=== PATIENT | female | born 1990 | race Two or more races ===

== ENCOUNTER 2018-06-17 19:18 | Emergency (ER) | payer MEDICARE, MEDICAID ==
[2018-06-17 19:22] VITALS: BP 125/82
--- NOTE | 2018-06-17 19:40 | ED ---
Throat Pain/Nasal Congestion - HPI Summary HPI Summary: Pt presents with complaint of foreign body in the R ear. She states that she accidentally broke off a piece of Q-tip while cleaning her ear approximately 10- 15 minutes ago. She is unable to remove it herself. There is no significant pain and no bleeding or discharge. She has no other complaints. - History of Current Complaint Chief Complaint: EDEarPain Time Seen by Provider: 06/17/18 19:30 Hx Obtained From: Patient - Allergies/Home Medications Allergies/Adverse Reactions: Allergies Allergy/AdvReac Type Severity Reaction Status Date / Time No Known Allergies Allergy Verified 06/17/18 19:20 PMH/Surg Hx/FS Hx/Imm Hx Previously Healthy: Yes Respiratory History: Reports: Hx Asthma Infectious Disease History: No Infectious Disease History: Denies: Traveled Outside the [place] in Last 30 Days - Social History Occupation: Employed Full-time Hx Substance Use: No Review of Systems Constitutional: Negative - and Y wouldn't. Positive: Other - foreign body. Negative: Ear Ache Respiratory: Negative All Other Systems Reviewed And Are Negative: Yes Physical Exam Triage Information Reviewed: Yes Vital Signs On Initial Exam: Initial Vitals Temp Pulse Resp BP Pulse Ox 98.1 F 79 16 125/82 98 06/17/18 19:20 06/17/18 19:20 06/17/18 19:20 06/17/18 19:20 06/17/18 19:20 Vital Signs Reviewed: Yes Appearance: Positive: Well-Appearing, No Pain Distress, Well-Nourished Skin: Positive: Warm, Dry Eyes: Positive: Normal ENT: Positive: Other - Small distal portion of the Q-tip it is stuck in the external canal. This was removed and there is no redness of the canal and the TM is intact. Neck: Positive: Supple Respiratory/Lung Sounds: Positive: Clear to Auscultation Cardiovascular: Positive: RRR Neurological: Positive: Alert, Oriented to Person Place, Time Psychiatric: Positive: Normal Procedures - Procedure Summary Procedure Summary: Foreign body removal right ear: A small portion of Q-tip was easily visible on the external portion of the canal. This was removed with alligator forceps intact. She tolerated this well without complication. Diagnostics - Vital Signs Vital Signs Temp Pulse Resp BP Pulse Ox 06/17/18 19:20 98.1 F 79 16 125/82 98 - Laboratory Lab Statement: Any lab studies that have been ordered have been reviewed, and results considered in the medical decision making process. EENT Course/Dx - Course Course Of Treatment: Foreign body removed. - Diagnoses Provider Diagnoses: Foreign body in right ear Discharge - Sign-Out/Discharge Documenting (check all that apply): Patient Departure Patient Received Moderate/Deep Sedation with Procedure: No - Discharge Plan Condition: Improved Disposition: HOME Patient Education Materials: Ear Foreign Body (ED) Referrals: [facility] [place] [facility] [Outside] No Primary Care Phys,NOPCP [Primary Care Provider] - Additional Instructions: Be careful putting items in your ear. Return if worse or other concerns. - Billing Disposition and Condition Condition: IMPROVED Disposition: Home - Attestation Statements Document Initiated by Jen: No
== END 2018-06-17 19:41 | disposition home or self-care (01) ==
LOC: ED 19:18
DX: T16.1XXA Foreign body in right ear, initial encounter (principal); X58.XXXA Exposure to other specified factors, initial encounter; Y92.9 Unspecified place or not applicable
CPT/HCPCS: 99281